=== PATIENT | female | born 1970 | race Caucasian/White ===

== ENCOUNTER 2022-05-24 09:53 | Outpatient (REF) | payer OTHER, SELFPAY ==
[2022-05-24 11:09] LABS: C Reactive Protein 1.08 mg/dL (< or = 0.50)
[2022-05-24 11:16] LABS: Erythrocyte Sedimentation Rate 21 MM/HR (0-20)
[2022-05-24 11:25] LABS: TSH reflex Free T4 1.85 uIU/mL (0.32-4.0)
== END 2022-05-24 09:54 | disposition home or self-care (01) ==
LOC: HO.10HDL 09:53
PROVIDERS: Visit Provider Internal Medicine Rheumatology
DX: M25.50 Pain in unspecified joint (principal); R63.5 Abnormal weight gain; M16.12 Unilateral primary osteoarthritis, left hip; R20.0 Anesthesia of skin; M79.7 Fibromyalgia
CPT/HCPCS: 36415; 84443; 85652; 86140; 99202